=== PATIENT | male | born 1950 | race Caucasian/White ===

== ENCOUNTER 2018-10-03 15:29 | Observation (INO) | payer OTHER ==
[2018-10-03] MEDS ORDERED: Sodium Chloride 0.9% 2.5 ML Syringe FLUSH PRN (15:35)
[2018-10-03] MEDS ORDERED: Sodium Chloride 0.9% 1,000 ML IV ONE (15:35)
[2018-10-03] MEDS ORDERED: Sodium Chloride 0.9% 10 ML Syringe FLUSH PRN (15:35)
--- NOTE | 2018-10-03 15:38 | EDM.PDOC ---
ED HPI GENERAL MEDICAL PROBLEM - General Chief Complaint: Back Pain or Injury Stated Complaint: STOMACH PAIN Time Seen by Provider: 10/03/18 15:31 - History of Present Illness INITIAL COMMENTS - FREE TEXT/NARRATIVE: HISTORY AND PHYSICAL: History of present illness: Patient is a 68-year-old white male with history of coronary artery disease including stent placement who presents with a concern of an episode of lower abdominal and back discomfort with radiation to his chest and upper back this became pronounced when he was on the toilet and he felt like he may pass out he became diaphoretic he denies shortness of breath he states he felt confused at that time also but has since resolved. Patient states this was not similar at all to his episode that required stent placement.. Review of systems: As per history of present illness and below otherwise all systems reviewed and negative. Past medical history: As per history of present illness and as reviewed below otherwise noncontributory. Surgical history: As per history of present illness and as reviewed below otherwise noncontributory. Social history: No reported history of drug or alcohol abuse. Family history: As per history of present illness and as reviewed below otherwise noncontributory. Physical exam: HEENT: Atraumatic, normocephalic, pupils reactive, negative for conjunctival pallor or scleral icterus, mucous membranes moist, throat clear, neck supple, nontender, trachea midline. Lungs: Clear to auscultation, breath sounds equal bilaterally, chest nontender. Heart: S1S2, regular, negative for clicks, rubs, or JVD. Abdomen: Soft, nondistended, nontender. Negative for masses or hepatosplenomegaly. Negative for costovertebral tenderness. Pelvis: Stable nontender. Genitourinary: Deferred. Rectal: Deferred. Extremities: Atraumatic, negative for cords or calf pain. Neurovascular unremarkable. Neuro: Awake, alert, oriented. Cranial nerves II through XII unremarkable. Cerebellum unremarkable. Motor and sensory unremarkable throughout. Exam nonfocal. Diagnostics: CBC CMP lipase troponin PT/INR EKG CT chest abdomen pelvis with IV contrast Therapeutics: IV O2 monitor Impression: #1 near syncope #2 abdominal pain #3 chest pain Definitive disposition and diagnosis as appropriate pending reevaluation and review of above. - Related Data Allergies Allergy/AdvReac Type Severity Reaction Status Date / Time Penicillins Allergy Hives Verified 10/03/18 15:39 Home Meds: Home Meds Aspirin [Adult Aspirin] 81 mg PO DAILY 07/16/18 [History] Lisinopril 10 mg PO DAILY 07/16/18 [History] Metoprolol Succinate 25 mg PO DAILY 07/16/18 [History] Nitroglycerin 0.4 mg SL ASDIRECTED PRN 07/16/18 [History] Simvastatin [Zocor] 40 mg PO DAILY 07/16/18 [History] metFORMIN HCl [Metformin HCl] 1,000 mg PO BID 07/16/18 [History] Past Medical History HEENT History: Reports: Other (See Below) Other HEENT History: wears glasses, top denture and bottom partial Cardiovascular History: Reports: CAD, High Cholesterol, Hypertension Gastrointestinal History: Reports: Other (See Below) Other Gastrointestinal History: reflux in the past Musculoskeletal History: Reports: Arthritis, Fracture, Gout Other Musculoskeletal History: Gout "many years ago" Neurological History: Reports: None Endocrine/Metabolic History: Reports: Diabetes, Type II - Past Surgical History Head Surgeries/Procedures: Reports: None Cardiovascular Surgical History: Reports: Coronary Artery Stent Other Cardiovascular Surgeries/Procedures: coronary stent placement in 2001 Endocrine Surgical History: Reports: None Neurological Surgical History: Reports: C-Spine, Lumbar Spine Other Neurological Surgeries/Procedures: back surgery, neck surgery with cadaver bone and plate Musculoskeletal Surgical History: Reports: ORIF Other Musculoskeletal Surgeries/Procedures:: ORIF left arm fx, ED ROS GENERAL - Review of Systems Review Of Systems: ROS reveals no pertinent complaints other than HPI. ED EXAM, GENERAL - Physical Exam Exam: See Below (See dictation) Course - Vital Signs Last Recorded V/S: Last Vital Signs Temp 36.6 C 10/03/18 15:37 Pulse 61 10/03/18 17:58 Resp 16 10/03/18 17:58 BP 133/76 10/03/18 17:58 Pulse Ox 95 10/03/18 17:58 - Orders/Labs/Meds Orders: Active Orders 24 hr Category Date Time Status Cardiac Monitoring [RC] . DIRECTED Care 10/03/18 15:34 Active EKG Documentation Completion [RC] STAT Care 10/03/18 15:34 Active Oxygen Therapy, ED [RC] ASDIRECTED Care 10/03/18 15:34 Active Abdomen Pelvis w Cont [CT] Stat Exams 10/03/18 15:35 Taken Sodium Chloride 0.9% [Saline Flush] Med 10/03/18 15:35 Active 10 ml FLUSH ASDIRECTED PRN Sodium Chloride 0.9% [Saline Flush] Med 10/03/18 15:35 Active 2.5 ml FLUSH ASDIRECTED PRN Saline Lock Insert [OM.PC] Stat Oth 10/03/18 15:34 Ordered Medication Orders Sodium Chloride (Saline Flush) 10 ml FLUSH ASDIRECTED PRN PRN Reason: Keep Vein Open Last Admin: 10/03/18 15:41 Dose: 10 ml Sodium Chloride (Saline Flush) 2.5 ml FLUSH ASDIRECTED PRN PRN Reason: Keep Vein Open Last Admin: 10/03/18 15:41 Dose: 2.5 ml Labs: Laboratory Tests 10/03/18 10/03/18 10/03/18 Range/Units 15:31 15:31 15:31 WBC 10.32 (4.0-11.0) K/uL RBC 4.22 L (4.50-5.90) M/uL Hgb 14.0 (13.0-17.0) g/dL Hct 39.3 (38.0-50.0) % MCV 93.1 (80.0-98.0) fL MCH 33.2 H (27.0-32.0) pg MCHC 35.6 (31.0-37.0) g/dL RDW Std Deviation 43.1 (28.0-62.0) fl RDW Coeff of Caren 13 (11.0-15.0) % Plt Count 147 L (150-400) K/uL MPV 10.20 (7.40-12.00) fL Neut % (Auto) 50.0 (48.0-80.0) % Lymph % (Auto) 35.6 (16.0-40.0) % [place] % (Auto) 12.2 (0.0-15.0) % Eos % (Auto) 2.0 (0.0-7.0) % Baso % (Auto) 0.2 (0.0-1.5) % Neut # (Auto) 5.2 (1.4-5.7) K/uL Lymph # (Auto) 3.7 H (0.6-2.4) K/uL [place] # (Auto) 1.3 H (0.0-0.8) K/uL Eos # (Auto) 0.2 (0.0-0.7) K/uL Baso # (Auto) 0.0 (0.0-0.1) K/uL Nucleated RBC % 0.0 /100WBC Nucleated RBCs # 0 K/uL INR 1.12 Sodium 138 (136-148) mmol/L Potassium 3.9 (3.5-5.1) mmol/L Chloride 101 (98-107) mmol/L Carbon Dioxide 23.7 (21.0-32.0) mmol/L BUN 21 H (7.0-18.0) mg/dL Creatinine 1.3 (0.8-1.3) mg/dL Est Cr Clr Drug Dosing 48.85 mL/min Estimated GFR (MDRD) 54.9 ml/min Glucose 120 H (74-106) mg/dL Calcium 9.6 (8.5-10.1) mg/dL Total Bilirubin 1.7 H (0.2-1.0) mg/dL AST 26 (15-37) IU/L ALT 37 (14-63) IU/L Alkaline Phosphatase 45 L (46-116) U/L Troponin I < 0.050 (0.000-0.056) ng/mL Total Protein 7.3 (6.4-8.2) g/dL Albumin 4.2 (3.4-5.0) g/dL Globulin 3.1 (2.6-4.0) g/dL Albumin/Globulin Ratio 1.4 (0.9-1.6) Lipase 343 (73-393) U/L Urine Color Urine Appearance Urine pH (5.0-8.0) Ur Specific [place] (1.001-1.035) Urine Protein (NEGATIVE) mg/dL Urine Glucose (UA) (NEGATIVE) mg/dL Urine Ketones (NEGATIVE) mg/dL Urine Occult Blood (NEGATIVE) Urine Nitrite (NEGATIVE) Urine Bilirubin (NEGATIVE) Urine Urobilinogen (<2.0) EU/dL Ur Leukocyte Esterase (NEGATIVE) 10/03/18 Range/Units 17:02 WBC (4.0-11.0) K/uL RBC (4.50-5.90) M/uL Hgb (13.0-17.0) g/dL Hct (38.0-50.0) % MCV (80.0-98.0) fL MCH (27.0-32.0) pg MCHC (31.0-37.0) g/dL RDW Std Deviation (28.0-62.0) fl RDW Coeff of Caren (11.0-15.0) % Plt Count (150-400) K/uL MPV (7.40-12.00) fL Neut % (Auto) (48.0-80.0) % Lymph % (Auto) (16.0-40.0) % [place] % (Auto) (0.0-15.0) % Eos % (Auto) (0.0-7.0) % Baso % (Auto) (0.0-1.5) % Neut # (Auto) (1.4-5.7) K/uL Lymph # (Auto) (0.6-2.4) K/uL [place] # (Auto) (0.0-0.8) K/uL Eos # (Auto) (0.0-0.7) K/uL Baso # (Auto) (0.0-0.1) K/uL Nucleated RBC % /100WBC Nucleated RBCs # K/uL INR Sodium (136-148) mmol/L Potassium (3.5-5.1) mmol/L Chloride (98-107) mmol/L Carbon Dioxide (21.0-32.0) mmol/L BUN (7.0-18.0) mg/dL Creatinine (0.8-1.3) mg/dL Est Cr Clr Drug Dosing mL/min Estimated GFR (MDRD) ml/min Glucose (74-106) mg/dL Calcium (8.5-10.1) mg/dL Total Bilirubin (0.2-1.0) mg/dL AST (15-37) IU/L ALT (14-63) IU/L Alkaline Phosphatase (46-116) U/L Troponin I (0.000-0.056) ng/mL Total Protein (6.4-8.2) g/dL Albumin (3.4-5.0) g/dL Globulin (2.6-4.0) g/dL Albumin/Globulin Ratio (0.9-1.6) Lipase (73-393) U/L Urine Color YELLOW Urine Appearance CLEAR Urine pH 6.0 (5.0-8.0) Ur Specific [place] <= 1.005 (1.001-1.035) Urine Protein NEGATIVE (NEGATIVE) mg/dL Urine Glucose (UA) NEGATIVE (NEGATIVE) mg/dL Urine Ketones NEGATIVE (NEGATIVE) mg/dL Urine Occult Blood NEGATIVE (NEGATIVE) Urine Nitrite NEGATIVE (NEGATIVE) Urine Bilirubin NEGATIVE (NEGATIVE) Urine Urobilinogen 0.2 (<2.0) EU/dL Ur Leukocyte Esterase NEGATIVE (NEGATIVE) Meds: Medications Generic Name Dose Route Start Last Admin Trade Name Freq PRN Reason Stop Dose Admin Sodium Chloride 10 ml 10/03/18 15:35 10/03/18 15:41 Saline Flush FLUSH 10 ml ASDIRECTED PRN Administration Keep Vein Open Sodium Chloride 2.5 ml 10/03/18 15:35 10/03/18 15:41 Saline Flush FLUSH 2.5 ml ASDIRECTED PRN Administration Keep Vein Open Discontinued Medications Generic Name Dose Route Start Last Admin Trade Name Freq PRN Reason Stop Dose Admin Sodium Chloride 1,000 mls @ 999 mls/hr 10/03/18 15:35 10/03/18 15:40 Normal Saline IV 10/03/18 16:35 999 mls/hr STAT ONE Administration Iopamidol 100 ml 10/03/18 17:16 10/03/18 17:17 Isovue Multipack-370 (76%) IVPUSH 10/03/18 17:17 100 ml ONETIME STA Administration Departure - Departure Time of Disposition: 19:01 Disposition: Refer to Observation Condition: Good Clinical Impression: Near syncope, Abdominal pain - Discharge Information Referrals: PCP,None [Primary Care Provider] - Forms: ED Department Discharge - My Orders Last 24 Hours: My Active Orders 10/03/18 15:34 Cardiac Monitoring [RC] . DIRECTED EKG Documentation Completion [RC] STAT Oxygen Therapy, ED [RC] ASDIRECTED Saline Lock Insert [OM.PC] Stat 10/03/18 15:35 Abdomen Pelvis w Cont [CT] Stat Sodium Chloride 0.9% [Saline Flush] 10 ml FLUSH ASDIRECTED PRN Sodium Chloride 0.9% [Saline Flush] 2.5 ml FLUSH ASDIRECTED PRN - Assessment/Plan Last 24 Hours: My Active Orders 10/03/18 15:34 Cardiac Monitoring [RC] . DIRECTED EKG Documentation Completion [RC] STAT Oxygen Therapy, ED [RC] ASDIRECTED Saline Lock Insert [OM.PC] Stat 10/03/18 15:35 Abdomen Pelvis w Cont [CT] Stat Sodium Chloride 0.9% [Saline Flush] 10 ml FLUSH ASDIRECTED PRN Sodium Chloride 0.9% [Saline Flush] 2.5 ml FLUSH ASDIRECTED PRN
[2018-10-03 16:06] LABS: CHLORIDE,CL 101 mmol/L (98-107); SODIUM,NA 138 mmol/L (136-148)
[2018-10-03] MEDS ORDERED: Iopamidol 755 MG/ML 500 ML Multipack Bottle IVPUSH STA (17:16)
--- NOTE | 2018-10-03 18:41 | CT ---
INDICATION: Pain, shortness of breath TECHNIQUE: CT chest, abdomen and pelvis acquired with 100 mL Isovue 370 IV contrast. COMPARISON: None FINDINGS: Chest: Cardiovascular structures: Heart size is normal. Thoracic aorta and main pulmonary artery are normal in caliber. No visualized pulmonary emboli. Coronary artery calcifications/stents. Mediastinum and piedad: No mass or adenopathy. Lungs: Clear, except for asymmetric right apical thickening/ nodularity. Consider followup chest CT examination in 6 months. Pleura and pericardium: No effusions. Chest wall and axilla: No mass or adenopathy. Bones: Unremarkable for age. Abdomen and Pelvis: Liver: Unremarkable. Spleen: Unremarkable. Pancreas: Unremarkable. Gallbladder and bile ducts: Unremarkable. Kidneys: Unremarkable. Adrenal glands: Unremarkable. GI tract: A loop of nonobstructed small bowel extends into a right inguinal hernia. Large amount of stool present in the rectosigmoid and colon, with equivocal area of narrowing at the rectosigmoid junction, as seen on axial images 104 through 107 of series 301. Consider colonoscopy if not recently performed. Appendix is normal. Vascular structures: Unremarkable. Lymph nodes: Unremarkable. Miscellaneous: Unremarkable. No free air or significant free fluid. Pelvic Organs: Urinary bladder is Unremarkable. Mild prostate enlargement Bones: Unremarkable for age. Extensive degenerative change of the lumbar spine. IMPRESSION: 1. Mild asymmetrical right apical thickening and nodularity, consider followup noncontrast chest CT in 6 months. Otherwise, chest unremarkable 2. Right inguinal hernia containing a nonobstructed loop of small bowel. Large amount of stool in the rectosigmoid with equivocal area of narrowing at the rectosigmoid junction, consider colonoscopy. Please note that all CT scans at this facility use dose modulation, iterative reconstruction, and/or weight-based dosing when appropriate to reduce radiation dose to as low as reasonably achievable. Dictated by Paul Melendez MD @ Oct 03 2018 6:20PM Signed by Dr. Paul Melendez @ Oct 03 2018 6:40PM
--- NOTE | 2018-10-03 19:08 | CT ---
INDICATION: Abdominal pain. TECHNIQUE: CT scan of the abdomen and pelvis with 100 cc of Isovue-370 given intravenously. FINDINGS: The lung bases are unremarkable. 3 mm possible cyst in segment 4 of the liver is too small to adequately characterize. No other focal abnormalities identified in the visualized portions of the liver, spleen, pancreas, adrenal glands, and kidneys. No hydronephrosis. No obstructing uroliths. The GI tract is incompletely distended but shows no gross abnormalities. The stomach and GE junction are not well assessed. Normal appendix. Small right inguinal hernia which contains a loop of small bowel with no evidence of strangulation or incarceration. Scattered small retroperitoneal lymph nodes which do not meet size criteria for adenopathy. No pelvic sidewall or mesenteric adenopathy. Atherosclerotic vascular calcifications. Degenerative changes of the spine. IMPRESSION: 1. No acute abnormalities of the abdomen or pelvis identified. 2. Small right inguinal hernia which contains a loop of small bowel with no evidence of strangulation or incarceration. Dictated by Eric Cdeeño MD @ 10/03/2018 7:06:05 PM Dictated by: Eric Cedeño MD @ 10/03/2018 19:06:16 (Electronically Signed)
[2018-10-03] MEDS: metFORMIN 500 MG Tab PO SCH (21:38)
--- NOTE | 2018-10-03 23:12 | PCM.HP ---
H&P History of Present Illness - General Date of Service: 10/03/18 Admit Problem/Dx: Admission Diagnosis/Problem Admission Diagnosis/Problem Near syncope - History of Present Illness Initial Comments - Free Text/Narative: 68 yo male with pmh of CAD who presented with sudden onset of lower abdominal pain that radiated to the back. Patient reported near syncope and diaphoresis with this episode of pain when he was straining on the toilet. He denies any shortness of breath or chest pain. CT scan of chest and abdomen reported large amount of stool in rectum and mild right apical nodularity of the lungs. Since admission he has reported several bowel movements. He was monitored overnight and has had no more episodes of lower abdominal pain. lower back Pain Score (Numeric/FACES): 8 - Related Data Allergies/Adverse Reactions: Allergies Allergy/AdvReac Type Severity Reaction Status Date / Time Penicillins Allergy Hives Verified 10/03/18 15:39 Home Medications: Home Meds Aspirin [Adult Aspirin] 81 mg PO DAILY 07/16/18 [History] Lisinopril 10 mg PO DAILY 07/16/18 [History] Metoprolol Succinate 25 mg PO DAILY 07/16/18 [History] Nitroglycerin 0.4 mg SL ASDIRECTED PRN 07/16/18 [History] Simvastatin [Zocor] 40 mg PO BEDTIME 07/16/18 [History] metFORMIN HCl [Metformin HCl] 1,000 mg PO BID 07/16/18 [History] Past Medical History HEENT History: Reports: Other (See Below) Other HEENT History: wears glasses, top denture and bottom partial Cardiovascular History: Reports: CAD, High Cholesterol, Hypertension Respiratory History: Reports: None Gastrointestinal History: Reports: Other (See Below) Other Gastrointestinal History: reflux in the past Genitourinary History: Reports: None Musculoskeletal History: Reports: Arthritis, Fracture, Gout Other Musculoskeletal History: Gout "many years ago" Neurological History: Reports: None Psychiatric History: Reports: None Endocrine/Metabolic History: Reports: Diabetes, Type II Hematologic History: Reports: None Immunologic History: Reports: None Oncologic (Cancer) History: Reports: None Dermatologic History: Reports: None - Infectious Disease History Infectious Disease History: Reports: Measles - Past Surgical History Head Surgeries/Procedures: Reports: None Cardiovascular Surgical History: Reports: Coronary Artery Stent Other Cardiovascular Surgeries/Procedures: coronary stent placement in 2001 Respiratory Surgical History: Reports: None Male Surgical History: Reports: None Endocrine Surgical History: Reports: None Neurological Surgical History: Reports: C-Spine, Lumbar Spine Other Neurological Surgeries/Procedures: back surgery, neck surgery with cadaver bone and plate Musculoskeletal Surgical History: Reports: ORIF Other Musculoskeletal Surgeries/Procedures:: ORIF left arm fx, Oncologic Surgical History: Reports: None Dermatological Surgical History: Reports: None Social & Family History - Family History Family Medical History: Noncontributory - Tobacco Use Smoking Status *Q: Never Smoker Used Tobacco, but Quit: Yes Month/Year Tobacco Last Used: 40 years Second Hand Smoke Exposure: No - Caffeine Use Caffeine Use: Reports: Coffee - Recreational Drug Use Recreational Drug Use: No H&P Review of Systems - Review of Systems: Review Of Systems: ROS reveals no pertinent complaints other than HPI. Exam - Exam Exam: See Below - Vital Signs Vital Signs: Last Vital Signs Temp 36.6 C 10/03/18 15:37 Pulse 66 10/03/18 19:22 Resp 18 10/03/18 19:22 BP 149/81 H 10/03/18 19:22 Pulse Ox 98 10/03/18 19:22 Weight: 84.595 kg - Exam General: Alert, Oriented Lungs: Clear to Auscultation, Normal Respiratory Effort Cardiovascular: Regular Rate, Regular Rhythm GI/Abdominal Exam: Soft, Non-Tender Extremities: Non-Tender, No Pedal Edema Skin: Warm, Dry, Intact - Patient Data Lab Results Last 24 hrs: Laboratory Results - last 24 hr 10/03/18 10/03/18 10/03/18 Range/Units 15:31 15:31 15:31 WBC 10.32 (4.0-11.0) K/uL RBC 4.22 L (4.50-5.90) M/uL Hgb 14.0 (13.0-17.0) g/dL Hct 39.3 (38.0-50.0) % MCV 93.1 (80.0-98.0) fL MCH 33.2 H (27.0-32.0) pg MCHC 35.6 (31.0-37.0) g/dL RDW Std Deviation 43.1 (28.0-62.0) fl RDW Coeff of Caren 13 (11.0-15.0) % Plt Count 147 L (150-400) K/uL MPV 10.20 (7.40-12.00) fL Neut % (Auto) 50.0 (48.0-80.0) % Lymph % (Auto) 35.6 (16.0-40.0) % [place] % (Auto) 12.2 (0.0-15.0) % Eos % (Auto) 2.0 (0.0-7.0) % Baso % (Auto) 0.2 (0.0-1.5) % Neut # (Auto) 5.2 (1.4-5.7) K/uL Lymph # (Auto) 3.7 H (0.6-2.4) K/uL [place] # (Auto) 1.3 H (0.0-0.8) K/uL Eos # (Auto) 0.2 (0.0-0.7) K/uL Baso # (Auto) 0.0 (0.0-0.1) K/uL Nucleated RBC % 0.0 /100WBC Nucleated RBCs # 0 K/uL INR 1.12 Sodium 138 (136-148) mmol/L Potassium 3.9 (3.5-5.1) mmol/L Chloride 101 (98-107) mmol/L Carbon Dioxide 23.7 (21.0-32.0) mmol/L BUN 21 H (7.0-18.0) mg/dL Creatinine 1.3 (0.8-1.3) mg/dL Est Cr Clr Drug Dosing 48.85 mL/min Estimated GFR (MDRD) 54.9 ml/min Glucose 120 H (74-106) mg/dL Calcium 9.6 (8.5-10.1) mg/dL Total Bilirubin 1.7 H (0.2-1.0) mg/dL AST 26 (15-37) IU/L ALT 37 (14-63) IU/L Alkaline Phosphatase 45 L (46-116) U/L Troponin I < 0.050 (0.000-0.056) ng/mL Total Protein 7.3 (6.4-8.2) g/dL Albumin 4.2 (3.4-5.0) g/dL Globulin 3.1 (2.6-4.0) g/dL Albumin/Globulin Ratio 1.4 (0.9-1.6) Lipase 343 (73-393) U/L Urine Color Urine Appearance Urine pH (5.0-8.0) Ur Specific [place] (1.001-1.035) Urine Protein (NEGATIVE) mg/dL Urine Glucose (UA) (NEGATIVE) mg/dL Urine Ketones (NEGATIVE) mg/dL Urine Occult Blood (NEGATIVE) Urine Nitrite (NEGATIVE) Urine Bilirubin (NEGATIVE) Urine Urobilinogen (<2.0) EU/dL Ur Leukocyte Esterase (NEGATIVE) 10/03/18 10/03/18 Range/Units 17:02 21:00 WBC (4.0-11.0) K/uL RBC (4.50-5.90) M/uL Hgb (13.0-17.0) g/dL Hct (38.0-50.0) % MCV (80.0-98.0) fL MCH (27.0-32.0) pg MCHC (31.0-37.0) g/dL RDW Std Deviation (28.0-62.0) fl RDW Coeff of Caren (11.0-15.0) % Plt Count (150-400) K/uL MPV (7.40-12.00) fL Neut % (Auto) (48.0-80.0) % Lymph % (Auto) (16.0-40.0) % [place] % (Auto) (0.0-15.0) % Eos % (Auto) (0.0-7.0) % Baso % (Auto) (0.0-1.5) % Neut # (Auto) (1.4-5.7) K/uL Lymph # (Auto) (0.6-2.4) K/uL [place] # (Auto) (0.0-0.8) K/uL Eos # (Auto) (0.0-0.7) K/uL Baso # (Auto) (0.0-0.1) K/uL Nucleated RBC % /100WBC Nucleated RBCs # K/uL INR Sodium (136-148) mmol/L Potassium (3.5-5.1) mmol/L Chloride (98-107) mmol/L Carbon Dioxide (21.0-32.0) mmol/L BUN (7.0-18.0) mg/dL Creatinine (0.8-1.3) mg/dL Est Cr Clr Drug Dosing mL/min Estimated GFR (MDRD) ml/min Glucose (74-106) mg/dL Calcium (8.5-10.1) mg/dL Total Bilirubin (0.2-1.0) mg/dL AST (15-37) IU/L ALT (14-63) IU/L Alkaline Phosphatase (46-116) U/L Troponin I < 0.050 (0.000-0.056) ng/mL Total Protein (6.4-8.2) g/dL Albumin (3.4-5.0) g/dL Globulin (2.6-4.0) g/dL Albumin/Globulin Ratio (0.9-1.6) Lipase (73-393) U/L Urine Color YELLOW Urine Appearance CLEAR Urine pH 6.0 (5.0-8.0) Ur Specific [place] <= 1.005 (1.001-1.035) Urine Protein NEGATIVE (NEGATIVE) mg/dL Urine Glucose (UA) NEGATIVE (NEGATIVE) mg/dL Urine Ketones NEGATIVE (NEGATIVE) mg/dL Urine Occult Blood NEGATIVE (NEGATIVE) Urine Nitrite NEGATIVE (NEGATIVE) Urine Bilirubin NEGATIVE (NEGATIVE) Urine Urobilinogen 0.2 (<2.0) EU/dL Ur Leukocyte Esterase NEGATIVE (NEGATIVE) Result Diagrams: 10/03/18 15:31 10/03/18 15:31 Problem List Initiated/Reviewed/Updated: Yes Orders Last 24hrs: Active Orders 24 hr Category Date Time Status Admission Status [Patient Status] [ADT] Stat ADT 10/03/18 19:05 Active Cardiac Monitoring [RC] . DIRECTED Care 10/03/18 15:34 Active [employer] Diet [DIET] Diet 10/04/18 Breakfast Active TROPONIN I [CHEM] Timed Lab 10/04/18 03:30 Ordered Aspirin [Halfprin] Med 10/04/18 09:00 Active 81 mg PO DAILY Insulin Aspart [NovoLOG] Med 10/04/18 07:30 Active See Protocol SUBCUT TIDAC Lisinopril [Prinivil] Med 10/04/18 09:00 Active 10 mg PO DAILY Metoprolol Succinate [Toprol XL] Med 10/04/18 09:00 Active 25 mg PO DAILY Pneumococcal 23-Valent Conjug [Pneumovax 23] Med 10/04/18 10:00 Once 25 mcg IM .ONCE ONE Simvastatin [Zocor] Med 10/04/18 21:00 Active 40 mg PO BEDTIME Sodium Chloride 0.9% [Saline Flush] Med 10/03/18 15:35 Active 10 ml FLUSH ASDIRECTED PRN Sodium Chloride 0.9% [Saline Flush] Med 10/03/18 15:35 Active 2.5 ml FLUSH ASDIRECTED PRN metFORMIN [Glucophage] Med 10/03/18 21:00 Active 1,000 mg PO BID Saline Lock Insert [OM.PC] Stat Oth 10/03/18 15:34 Ordered Medication Orders Aspirin (Halfprin) 81 mg PO DAILY [facility] Insulin Aspart (Novolog) 0 unit SUBCUT TIDAC [facility]; Protocol Lisinopril (Prinivil) 10 mg PO DAILY [facility] Metformin HCl (Glucophage) 1,000 mg PO BID [facility] Last Admin: 10/03/18 21:38 Dose: 1,000 mg Metoprolol Succinate (Toprol Xl) 25 mg PO DAILY [facility] Pneumococcal Polyvalent Vaccine (Pneumovax 23) 25 mcg IM .ONCE ONE Stop: 10/04/18 10:01 Simvastatin (Zocor) 40 mg PO BEDTIME [facility] Sodium Chloride (Saline Flush) 10 ml FLUSH ASDIRECTED PRN PRN Reason: Keep Vein Open Last Admin: 10/03/18 15:41 Dose: 10 ml Sodium Chloride (Saline Flush) 2.5 ml FLUSH ASDIRECTED PRN PRN Reason: Keep Vein Open Last Admin: 10/03/18 15:41 Dose: 2.5 ml Assessment/Plan Comment:: 68 yo male admitted for near syncope with abdominal pain. I suspect patient had a vaso-vagal moment when attempting bowel movement. He was informed of the CT scan results including nodularity of the lungs, inguinal hernia and narrowing of the rectosigmoid junction. He reports he had a normal colonoscopy last July. He is to see his his PCP regarding follow up with CT results.
[2018-10-04] MEDS: Insulin Aspart 100 Units/ML 3 ML Pen SUBCUT SCH ×2 (06:44→13:14)
[2018-10-04] MEDS: metFORMIN 500 MG Tab PO SCH (08:15)
[2018-10-04] MEDS ORDERED: Simvastatin 40 MG Tab PO SCH ×2 (09:00→21:00)
[2018-10-04] MEDS: Lisinopril 10 MG Tab PO SCH ×2 (09:02→11:25)
[2018-10-04] MEDS: Metoprolol Succinate 25 MG Tab.ER PO SCH ×2 (09:02→11:25)
[2018-10-04] MEDS: Aspirin 81 MG Tab.EC PO SCH ×2 (09:02→11:24)
[2018-10-04] MEDS ORDERED: Pneumococcal Polyvalent-23 Vaccine 0.5 ML SDV IM ONE (10:00)
[2018-10-04] MEDS ORDERED: Pneumococcal 23-Valent Conjugate Vaccine 0.5 ML Syringe IM ONE (10:00)
== END 2018-10-04 13:50 | disposition home or self-care (01) ==
LOC: MW.ED 15:29 → MW.MS 19:15
PROVIDERS: ADMIT Internal Medicine; ATTEND Internal Medicine
DX: R55 Syncope and collapse (principal); R10.9 Unspecified abdominal pain; I10 Essential (primary) hypertension; E11.9 Type 2 diabetes mellitus without complications; E78.00 Pure hypercholesterolemia, unspecified; Z87.891 Personal history of nicotine dependence; Z79.82 Long term (current) use of aspirin; Z79.899 Other long term (current) drug therapy; Z88.0 Allergy status to penicillin
CPT/HCPCS: 36415; 71260; 74177; 80053; 81003; 82962; 83690; 84484; 85025; 85610; 90732; 93005; 96360; 99285; A9270; G0009; G0378; J7040; Q9967

== ENCOUNTER 2024-08-21 23:51 | Emergency (ER) | payer MEDICARE, BC ==
[2024-08-21] MEDS ORDERED: Sodium Chloride 0.9% 10 ML Syringe FLUSH PRN (23:52)
[2024-08-22] MEDS: Aspirin 81 MG Tab.Chew PO ONE (00:05)
[2024-08-22 00:20] LABS: HEMATOCRIT 34.4 % (42.0-52.0); HEMOGLOBIN 12.2 g/dL (14.0-18.0); MEAN CORPUSCULAR HEMOGLOBIN 33.2 pg (28.0-32.0); MEAN CORPUSCULAR HGB CONC 35.5 g/dL (32.0-36.0); MEAN CORPUSCULAR VOLUME 93.7 fL (83.0-99.0); MEAN PLATELET VOLUME 9.8 fL (9.4-12.4); PLATELET COUNT,PLT 151 K/uL (150-400); RED BLOOD CELL COUNT 3.67 M/uL (4.52-5.90); WHITE BLOOD CELL COUNT,WBC 11.42 K/uL (3.9-11.3)
[2024-08-22 00:31] LABS: INR 1.2 (0.86-1.11)
[2024-08-22] MEDS: Sodium Chloride 0.9% 1,000 ML IV ONE ×2 (00:37→01:54)
[2024-08-22 00:41] LABS: BAND ABSOLUTE MAN 0.57; BAND PERCENT MAN 5 %; EOSINOPHILS ABSOLUTE MAN 0.34 K/uL (0.00-0.45); EOSINOPHILS PERCENT MAN 3 % (0-6); LYMPHOCYTES ABSOLUTE MAN 5.14 K/uL (1.00-4.80); LYMPHOCYTES PERCENT MAN 45 % (24-44); MONOCYTES ABSOLUTE MAN 0.34 K/uL (0.00-0.80); MONOCYTES PERCENT MAN 3 % (0-8); SEG NEUTROPHILS ABSOLUTE MAN 5.02 K/uL (1.80-7.70); SEG NEUTROPHILS PERCENT MAN 44 % (41-71)
[2024-08-22 00:50] LABS: HEMOGLOBIN A1C 6.4 %
[2024-08-22 00:51] LABS: A/G RATIO 1.5 (0.9-1.6); ALBUMIN 4.1 g/dL (3.4-5.0); BILIRUBIN TOTAL 1.4 mg/dL (0.2-1.0); CALCIUM 9.1 mg/dL (8.5-10.1); CARBON DIOXIDE,CO2 26.2 mmol/L (21.0-32.0); CREATININE 1.3 mg/dL (0.8-1.3); EST CRCL DRUG DOSING (CG) 56.34 mL/min; MAGNESIUM 1.8 mg/dL (1.8-2.4); POTASSIUM,K 3.8 mmol/L (3.5-5.1); PROTEIN TOTAL,TP 6.9 g/dL (6.4-8.2)
[2024-08-22] MEDS: Iopamidol 755 MG/ML 500 ML Multipack Bottle IVPUSH ONE (01:11)
[2024-08-22] MEDS ORDERED: Morphine 2 MG/ML SYRINGE IVPUSH PRN (01:28)
[2024-08-22] MEDS: Pantoprazole 40 MG in Sodium Chloride 0.9% 10 ML IVPUSH ONE (01:53)
[2024-08-22] MEDS: Morphine 2 MG/ML SYRINGE IVPUSH ONE (02:35)
[2024-08-22] MEDS: Ondansetron 4 MG/2 ML SDV IVPUSH ONE (02:35)
[2024-08-22 03:31] LABS: APPEARANCE,URINE CLEAR; BILIRUBIN,URINE NEGATIVE (NEGATIVE); COLOR,URINE YELLOW; GLUCOSE,URINE NEGATIVE (NEGATIVE); KETONES,URINE NEGATIVE (NEGATIVE); LEUKOCYTE ESTERASE,URINE NEGATIVE (NEGATIVE); NITRITE,URINE NEGATIVE (NEGATIVE); OCCULT BLOOD,URINE NEGATIVE (NEGATIVE); PROTEIN,URINE NEGATIVE (NEGATIVE); UROBILINOGEN,URINE 0.2 EU/dL (<2.0)
== END 2024-08-22 05:30 | disposition home or self-care (01) ==
LOC: MW.ED 23:51
DX: R10.13 Epigastric pain (principal); R50.9 Fever, unspecified; R07.9 Chest pain, unspecified; T65 Toxic effect of other and unspecified substances; I95.89 Other hypotension; R79.89 Other specified abnormal findings of blood chemistry; F10.90 Alcohol use, unspecified, uncomplicated; R61 Generalized hyperhidrosis; E80.7 Disorder of bilirubin metabolism, unspecified; I10 Essential (primary) hypertension; I25.10 Atherosclerotic heart disease of native coronary artery without angina pectoris; E78.00 Pure hypercholesterolemia, unspecified; E11.9 Type 2 diabetes mellitus without complications; Z79.84 Long term (current) use of oral hypoglycemic drugs; Z95.5 Presence of coronary angioplasty implant and graft; Z79.899 Other long term (current) drug therapy; Z88.0 Allergy status to penicillin
CPT/HCPCS: 36415; 71045; 74177; 80053; 80307; 81003; 82947; 83036; 83605; 83690; 83735; 83880; 84484; 85025; 85610; 87040; 87428; 93005; 96361; 96374; 99285; A9270; J2470; J7030; Q9967; 93010